=== PATIENT | female | born 1990 | race American Indian/Alaskan Native ===

== ENCOUNTER 2019-09-25 15:14 | Emergency (ER) | payer SELFPAY ==
--- NOTE | 2019-09-25 16:30 | Event Note ---
ED Screening Note ED Screening Note: asthma exacerbation began two days ago states she has chest tightness, sob, wheezing no fever dry cough takes albuterol inhaler and neb tx states using them 4-5 times a day no other pmhx no allergies to meds LNMP: 08/31/2019 This initial assessment/diagnostic orders/clinical plan/treatment(s) is/are subject to change based on patients health status, clinical progression and re- assessment by fellow clinical providers in the ED. Further treatment and workup at subsequent clinical providers discretion. Patient/guardian urged not to elope from the ED as their condition may be serious if not clinically assessed and managed. Initial orders include: neb tx, steroids
[2019-09-25] MEDS ORDERED: dexAMETHasone 20 MG/5 ML VIAL IM ONE (16:31)
[2019-09-25] MEDS ORDERED: IPRATROPIUM 0.02% NEBU 2.5 ML IH ONE (16:31)
[2019-09-25] MEDS ORDERED: ALBUTEROL 2.5 MG/3 ML NEBU IH ONE (16:31)
--- NOTE | 2019-09-25 17:21 | Emergency Department Report ---
ED Asthma HPI - General Chief Complaint: Adult Asthma Stated Complaint: ASTHMA ATTACK/CHEST TIGHT Time Seen by Provider: 09/25/19 16:27 Source: patient Mode of arrival: Ambulatory Limitations: No Limitations - History of Present Illness Initial Comments: asthma exacerbation began two days ago states she has chest tightness, sob, wheezing no fever (+) dry cough no productive cough takes albuterol inhaler and neb tx states using neb tx 4-5 times a day no other pmhx no allergies to meds LNMP: 08/31/2019 - Related Data Previous Rx's Medication Instructions Recorded Last Taken Type ALBUTEROL NEB's [Proventil 0.083% 2.5 mg IH TID PRN #1 box 09/25/19 Unknown Rx NEBS] Prednisone [predniSONE 10 mg 10 mg PO .TAPER #1 tab.ds.pk 09/25/19 Unknown Rx (6-Day Pack, 21 Tabs)] Allergies Allergy/AdvReac Type Severity Reaction Status Date / Time No Known Allergies Allergy Verified 09/25/19 15:16 ED Review of Systems ROS: Stated complaint: ASTHMA ATTACK/CHEST TIGHT Other details as noted in HPI Comment: All other systems reviewed and negative ED Past Medical Hx - Past Medical History Previous Medical History?: Yes Hx Asthma: Yes - Surgical History Past Surgical History?: No - Medications Home Medications: Home Medications Medication Instructions Recorded Confirmed Last Taken Type ALBUTEROL NEB's [Proventil 0.083% 2.5 mg IH TID PRN #1 box 09/25/19 Unknown Rx NEBS] Prednisone [predniSONE 10 mg 10 mg PO .TAPER #1 tab.ds.pk 09/25/19 Unknown Rx (6-Day Pack, 21 Tabs)] ED Physical Exam - General Limitations: No Limitations General appearance: alert, in no apparent distress - Head Head exam: Present: atraumatic, normocephalic - Eye Eye exam: Present: normal appearance - ENT ENT exam: Present: normal orophraynx, mucous membranes moist, TM's normal bilaterally, normal external ear exam - Respiratory Respiratory exam: Present: wheezes (mild bilaterally), decreased breath sounds. Absent: respiratory distress, rales, rhonchi, stridor, chest wall tenderness, accessory muscle use, prolonged expiratory - Cardiovascular Cardiovascular Exam: Present: regular rate, normal rhythm, normal heart sounds. Absent: systolic murmur, diastolic murmur, rubs, gallop - Neurological Exam Neurological exam: Present: alert, oriented X3 - Psychiatric Psychiatric exam: Present: normal affect, normal mood - Skin Skin exam: Present: warm, dry, intact ED Course Vital Signs 09/25/19 15:21 Temperature 98.5 F Pulse Rate 82 Respiratory 22 Rate Blood Pressure 133/67 O2 Sat by Pulse 100 Oximetry ED Medical Decision Making - Medical Decision Making asthma exacerbation began two days ago states she has chest tightness, sob, wheezing no fever (+) dry cough no productive cough takes albuterol inhaler and neb tx states using neb tx 4-5 times a day no other pmhx no allergies to meds LNMP: 08/31/2019 vitals are normal no tachycardia, normal oxygen saturation, afebrile on exam: mild wheezing, slightly decreased breath sounds pt given neb tx and steroid injection s/p meds, breath sounds have completely improved given prescription neb tx and prednisone advised pt to please take medication as prescribed. may take mucinex over the counter for cough/cold symptoms. follow up with a primary care doctor in the next 2-3 days for reexamination and management of your asthma. return to the emergency room for any new or worsening symptoms. Critical care attestation.: If time is entered above; I have spent that time in minutes in the direct care of this critically ill patient, excluding procedure time. ED Disposition Clinical Impression: Asthma exacerbation Qualifiers: Asthma severity: mild Asthma persistence: intermittent Qualified Code(s): J45.21 - Mild intermittent asthma with (acute) exacerbation Disposition: DC-01 TO HOME OR SELFCARE Is pt being admited?: No Does the pt Need Aspirin: No Condition: Stable Instructions: Asthma (ED) Additional Instructions: please take medication as prescribed. may take mucinex over the counter for cough/cold symptoms. follow up with a primary care doctor in the next 2-3 days for reexamination and management of your asthma. return to the emergency room for any new or worsening symptoms. Prescriptions: Prednisone [predniSONE 10 mg (6-Day Pack, 21 Tabs)] 10 mg PO .TAPER #1 tab.ds.pk ALBUTEROL NEB's [Proventil 0.083% NEBS] 2.5 mg IH TID PRN #1 box PRN Reason: Wheezing Referrals: BG MCCRAY MD [Staff Physician] - 2-3 Days [facility] [Outside] - 2-3 Days [facility] [Outside] - 2-3 Days Forms: Work/School Release Form(ED) Time of Disposition: 17:19 Print Language: RWANDAN
[2019-09-25 21:42] VITALS: BP 133/67
== END 2019-09-25 16:50 | disposition home or self-care (01) ==
LOC: ED 15:14
DX: J45.901 Unspecified asthma with (acute) exacerbation (principal); Z79.899 Other long term (current) drug therapy
CPT/HCPCS: 94640; 96372; 99282; J1100